=== PATIENT | male | born 1995 | race Caucasian/White ===

== ENCOUNTER 2017-08-29 22:31 | Emergency (ER) | payer OTHER ==
[~2017-08-29] VITALS: Ht 172.7 cm; Wt 104.3 kg
[~2017-08-29 22:31] MED LIST: HYDR-1189 PO
[2017-08-29 22:50] VITALS: BP_SYST 139
--- NOTE | 2017-08-29 23:00 | NUR ---
Patient to ER bed 06 to gown for evaluation. Side rails up. Will assume care
--- NOTE | 2017-08-29 23:17 | NUR ---
Patient brought in with family complaining of nausea, vomiting and diarrhea since this morning. States having subjective fevers and dry cough with right upper quadrant pain. Pain 7/10. Abdomen is round and soft. No other complaints/injuries per patient or as noted. Will continue to monitor.
--- NOTE | 2017-08-29 23:26 | NUR ---
ER at bedside examining patient.
[2017-08-29] MEDS ORDERED: ONDANSETRON HCL 4 MG/2 ML VIAL IVP ONE (23:30)
[2017-08-29] MEDS ORDERED: NACL 0.9% 1,000 ML IV ONE (23:30)
[2017-08-29] MEDS ORDERED: KETOROLAC TROMETHAMINE 30 MG VIAL IVP ONE (23:30)
--- NOTE | 2017-08-30 00:47 | NUR ---
Dr. Wilson at bedside reassessing patient.
[2017-08-30 00:49] VITALS: BP_SYST 128
== END 2017-08-30 00:47 | disposition home or self-care (01) ==
LOC: SED 22:31
DX: A08.4 Viral intestinal infection, unspecified (principal)
CPT/HCPCS: 96361; 96374; 96375; 99284; J1885; J2405; J7030 ×2